=== PATIENT | male | born 1955 | race Caucasian/White ===

== ENCOUNTER → 2019-07-12 09:08 | Outpatient (CLI) | payer OTHER, SELFPAY ==
[2019-07-12 09:39] LABS: Add Manual Diff / Slide Review NO; Basophils Absolute Auto 0 /uL (0-100); Basophils Percent Auto 0.6 % (0-2); Eosinophils Absolute Auto 100 /uL (0-450); Eosinophils Percent Auto 3.3 % (2-4); Hematocrit 46.4 % (41-53); Hemoglobin 15.8 g/dL (13.5-17.5); Lymphocytes Absolute Auto 1300 /uL (1100-4500); Lymphocytes Percent Auto 30.4 % (25-40); Mean Corpuscular HGB Conc 34.1 % (30-36); Mean Corpuscular Hemoglobin 30.1 PG (26-34); Mean Corpuscular Volume 88.2 fL (80-100); Monocytes Absolute Auto 400 /uL (0-900); Monocytes Percent Auto 8.3 % (3-14); Neutrophils Absolute Auto 2400 /uL (1500-7000); Neutrophils Percent Auto 57.4 % (50-75); Platelet Count 110 X10^3/uL (150-400); Red Blood Cell Count 5.26 X10^6/uL (4.5-5.9); Red Cell Distribution Width 14.1 % (11.6-14.8); White Blood Cell Count 4.3 X10^3/uL (4.5-11.0)
[2019-07-12 09:43] LABS: Hemoglobin A1C% w Est Avg Glu 5.6 % (4.0-6.0)
[2019-07-12 10:35] LABS: Alanine Aminotransferase 25 IU/L (<50); Albumin Globulin Ratio 1.7 (1.0-2.8); Alkaline Phosphatase 61 U/L (38-126); Aspartate Aminotransferase 31 IU/L (17-59); BUN Creatinine Ratio 18.5 (6-22); Bilirubin Total 2.2 mg/dL (0.2-1.3); Blood Urea Nitrogen 24 mg/dL (9-20); Carbon Dioxide 27 mmol/L (22-32); Chloride 102 mmol/L (98-107); Estimated Glomerular Filt Rate 56.1 mL/min (>60); Glucose 104 mg/dL (80-110); HEMOLYSIS < 15 (0-50); Potassium 4.3 mmol/L (3.4-5.1); Sodium 141 mmol/L (137-145)
[2019-07-12 11:05] LABS: Thyroid Stimulating Hormone 5.86 uIU/mL (0.47-4.68)
[2019-07-12 11:06] LABS: Prostate Specific Antigen Scrn 0.969 ng/mL (0.1-4.0)
== END ==
PROVIDERS: PCP Family Medicine; Referring Provider Family Medicine; Visit Provider Family Medicine
DX: R10.11 Right upper quadrant pain (principal); Z12.5 Encounter for screening for malignant neoplasm of prostate
CPT/HCPCS: 36415; 80053; 83036; 84443; 85025; G0103

== ENCOUNTER → 2019-07-20 09:49 | Outpatient (CLI) | payer OTHER, SELFPAY ==
[2019-07-20 11:54] LABS: Free T4, Direct Thyroxine 0.94 ng/dL (0.78-2.19)
[2019-07-20 12:08] LABS: Thyroid Stimulating Hormone 4.14 uIU/mL (0.47-4.68)
== END ==
PROVIDERS: PCP Family Medicine; Referring Provider Family Medicine; Visit Provider Family Medicine
DX: E03.9 Hypothyroidism, unspecified (principal)
CPT/HCPCS: 36415; 84439; 84443

== ENCOUNTER → 2019-10-13 10:44 | Outpatient (CLI) | payer OTHER, SELFPAY ==
[2019-10-13 13:05] LABS: TSH w/ Reflex to FT4 2.16 uIU/mL (0.47-4.68)
== END ==
PROVIDERS: PCP Family Medicine; Referring Provider Family Medicine; Visit Provider Family Medicine
DX: E03.9 Hypothyroidism, unspecified (principal)
CPT/HCPCS: 36415; 84443

== ENCOUNTER → 2020-03-26 07:41 | Outpatient (CLI) | payer OTHER, SELFPAY ==
--- NOTE | 2020-03-26 | DI.MRI.S_ITS ---
PROCEDURE: MR BRAIN (IAC) WWO CON INDICATIONS: Tinnitus, right ear TECHNIQUE: Noncontrast sagittal T1 spin echo, axial FLAIR, axial gradient echo, axial diffusion and ADC through the brain. Axial thin-slice 3D CISS, coronal TruFISP, axial T1 spin echo with fat saturation through the internal auditory canals. After the administration of contrast, thin slice axial and coronal T1 spin echo with fat saturation through the internal auditory canals, and axial T1 spin echo with fat saturation through the brain. COMPARISON: None. FINDINGS: Image quality: Excellent. Cerebellopontine angles: No cerebellopontine angle masses. The inner ear structures appear normally formed. No suspicious enhancement in the internal auditory canal or along the courses of the 7th and 8th cranial nerves. No sarina vascular loops are seen into the internal auditory canals. CSF spaces: Ventricles are normal in size and shape. No extra-axial fluid collections. Basal cisterns are patent. Brain: No intracranial bleeds or mass effects. Lee-white matter interface is intact. No abnormal intracranial enhancement. Diffusion weighted images demonstrate no acute ischemic insults. Brainstem appears normal. Normal intravascular flow voids are present. Skull and face: Calvarial marrow signal is normal. Orbits appear normal. Sinuses: There is a mucous retention cyst seen within the right maxillary sinus. Sinuses and mastoids are otherwise relatively clear. IMPRESSION: No significant abnormality is seen. Specifically, no masses or abnormal enhancement are seen within the cerebellopontine angle cisterns or within the internal auditory canals. No abnormal vascular loops are seen involving either internal auditory canal. Dictated by: Cristóbal Greenwood M.D. on 03/26/2020 at 9:08 Approved by: Cristóbal Greenwood M.D. on 03/26/2020 at 9:09
== END ==
PROVIDERS: PCP Family Medicine; Referring Provider Otolaryngology; Visit Provider Otolaryngology
DX: H93.11 Tinnitus, right ear (principal)
CPT/HCPCS: 70553

== ENCOUNTER → 2020-08-23 10:36 | Outpatient (CLI) | payer OTHER, SELFPAY ==
[2020-08-23] MEDS: COVID-19 VACC #1, MRNA(MOD) 100 MCG/0.5 ML VIAL IM (10:39)
== END ==
PROVIDERS: PCP Family Medicine; Visit Provider Internal Medicine
DX: Z23 Encounter for immunization (principal)
CPT/HCPCS: 0011A; 91301

== ENCOUNTER → 2020-09-07 07:52 | Outpatient (CLI) | payer OTHER, SELFPAY ==
[2020-09-07 08:33] LABS: Basophils Absolute Auto 0 /uL (0-100); Basophils Percent Auto 1.2 % (0-2); Eosinophils Absolute Auto 300 /uL (0-450); Eosinophils Percent Auto 6.7 % (2-4); Hematocrit 43.4 % (41-53); Hemoglobin 14.6 g/dL (13.5-17.5); Lymphocytes Absolute Auto 1400 /uL (1100-4500); Lymphocytes Percent Auto 36.3 % (25-40); Mean Corpuscular HGB Conc 33.5 % (30-36); Mean Corpuscular Hemoglobin 29.5 PG (26-34); Mean Corpuscular Volume 87.9 fL (80-100); Monocytes Absolute Auto 400 /uL (0-900); Monocytes Percent Auto 11.7 % (3-14); Neutrophils Absolute Auto 1700 /uL (1500-7000); Neutrophils Percent Auto 44.1 % (50-75); Platelet Count 102 X10^3/uL (150-400); Red Blood Cell Count 4.94 X10^6/uL (4.5-5.9); Red Cell Distribution Width 13.4 % (11.6-14.8); White Blood Cell Count 3.8 X10^3/uL (4.5-11.0)
[2020-09-07 08:35] LABS: Add Manual Diff / Slide Review SLIDE REVIEW
[2020-09-07 09:37] LABS: RBC Morphology Normal Morphology
[2020-09-07 09:39] LABS: Platelet Estimate Decreased on smear
[2020-09-07 09:49] LABS: Alanine Aminotransferase 29 IU/L (<50); Albumin 4.4 g/dL (3.5-5.0); Albumin Globulin Ratio 1.6 (1.0-2.8); Alkaline Phosphatase 62 U/L (38-126); Aspartate Aminotransferase 37 IU/L (17-59); BUN Creatinine Ratio 14.8 (6-22); Bilirubin Total 1.1 mg/dL (0.2-1.3); Blood Urea Nitrogen 18 mg/dL (9-20); Calcium 9.6 mg/dL (8.4-10.2); Carbon Dioxide 29 mmol/L (22-32); Chloride 104 mmol/L (98-107); Cholesterol 194 mg/dL (140-199); Estimated Glomerular Filt Rate > 60.0 mL/min (>60); Globulin 2.8 g/dL (1.7-4.1); Glucose 107 mg/dL (80-110); HDL Cholesterol 49 mg/dL (40-60); HEMOLYSIS < 15 (0-50); LDL Cholesterol Calculated 120 mg/dL (<100); Potassium 4.2 mmol/L (3.4-5.1); Sodium 139 mmol/L (137-145); Total Protein 7.2 g/dL (6.3-8.2); Triglycerides 125 mg/dL (35-150)
[2020-09-07 10:18] LABS: Prostate Specific Antigen Scrn 0.777 ng/mL (0.1-4.0)
[2020-09-07 10:22] LABS: TSH w/ Reflex to FT4 4.08 uIU/mL (0.47-4.68)
== END ==
PROVIDERS: PCP Family Medicine; Referring Provider Family Medicine; Visit Provider Family Medicine
DX: D69.6 Thrombocytopenia, unspecified (principal); E03.9 Hypothyroidism, unspecified; N28.9 Disorder of kidney and ureter, unspecified; Z13.220 Encounter for screening for lipoid disorders; Z12.5 Encounter for screening for malignant neoplasm of prostate
CPT/HCPCS: 36415; 80053; 80061; 84443; 85025; G0103

== ENCOUNTER → 2020-09-20 10:15 | Outpatient (CLI) | payer OTHER, SELFPAY ==
[2020-09-20] MEDS: COVID-19 VACC #2, MRNA(MOD) 100 MCG/0.5 ML VIAL IM (10:20)
== END ==
PROVIDERS: PCP Family Medicine; Visit Provider Internal Medicine
DX: Z23 Encounter for immunization (principal)
CPT/HCPCS: 0012A; 91301

== ENCOUNTER → 2021-11-22 07:04 | Outpatient (CLI) | payer OTHER, SELFPAY ==
[2021-11-22 08:03] LABS: Basophils Absolute Auto 0 /uL (0-100); Basophils Percent Auto 0.6 % (0-2); Eosinophils Absolute Auto 200 /uL (0-450); Eosinophils Percent Auto 5.9 % (2-4); Hematocrit 43.7 % (41-53); Hemoglobin 14.6 g/dL (13.5-17.5); Lymphocytes Absolute Auto 1300 /uL (1100-4500); Lymphocytes Percent Auto 33.5 % (25-40); Mean Corpuscular HGB Conc 33.5 % (30-36); Mean Corpuscular Hemoglobin 29.4 PG (26-34); Mean Corpuscular Volume 87.9 fL (80-100); Monocytes Absolute Auto 500 /uL (0-900); Monocytes Percent Auto 11.9 % (3-14); Neutrophils Absolute Auto 1900 /uL (1500-7000); Neutrophils Percent Auto 48.1 % (50-75); Platelet Count 103 X10^3/uL (150-400); Red Blood Cell Count 4.97 X10^6/uL (4.5-5.9); Red Cell Distribution Width 13.5 % (11.6-14.8)
[2021-11-22 08:06] LABS: Alanine Aminotransferase 35 IU/L (<50); Albumin 4.6 g/dL (3.5-5.0); Albumin Globulin Ratio 1.6 (1.0-2.8); Alkaline Phosphatase 57 U/L (38-126); Aspartate Aminotransferase 38 IU/L (17-59); BUN Creatinine Ratio 14.3 (6-22); Bilirubin Total 1.7 mg/dL (0.2-1.3); Blood Urea Nitrogen 18 mg/dL (9-20); Calcium 9.1 mg/dL (8.4-10.2); Carbon Dioxide 28 mmol/L (22-32); Chloride 105 mmol/L (98-107); Cholesterol 200 mg/dL (140-199); Estimated Glomerular Filt Rate > 60 mL/min (>60); Globulin 2.8 g/dL (1.7-4.1); Glucose 102 mg/dL (80-110); HDL Cholesterol 49 mg/dL (40-60); HEMOLYSIS < 15 (0-50); LDL Cholesterol Calculated 127 mg/dL (<100); Potassium 4.5 mmol/L (3.4-5.1); Sodium 140 mmol/L (137-145); Total Protein 7.4 g/dL (6.3-8.2); Triglycerides 122 mg/dL (35-150)
[2021-11-22 08:08] LABS: Add Manual Diff / Slide Review SLIDE REVIEW
[2021-11-22 08:33] LABS: Prostate Specific Antigen Scrn 0.759 ng/mL (0.1-4.0)
[2021-11-22 08:34] LABS: TSH w/ Reflex to FT4 2.45 uIU/mL (0.47-4.68)
[2021-11-22 09:06] LABS: RBC Morphology Normal Morphology
== END ==
PROVIDERS: PCP Family Medicine; Referring Provider Family Medicine; Visit Provider Family Medicine
DX: Z00.00 Encounter for general adult medical examination without abnormal findings (principal); K63.5 Polyp of colon; N28.9 Disorder of kidney and ureter, unspecified; E03.9 Hypothyroidism, unspecified; Z12.5 Encounter for screening for malignant neoplasm of prostate
CPT/HCPCS: 36415; 80053; 80061; 84443; 85025; G0103

== ENCOUNTER → 2022-04-24 14:13 | Outpatient (CLI) | payer OTHER, SELFPAY ==
--- NOTE | 2022-04-24 14:15 | DI.RAD.S_ITS ---
PROCEDURE: XR RIBS RT MIN 3V W CXR 1V INDICATIONS: right posterior rib pain TECHNIQUE: 4 views of the right ribs were acquired, along with a single view chest. COMPARISON: None. FINDINGS: Surgical changes and devices: None. Bones and chest wall: No fractures or dislocations. No suspicious bony lesions. Overlying soft tissues appear unremarkable. Lungs and pleura: No pleural effusions or pneumothorax. Lungs appear clear. Mediastinum: Mediastinal contours appear normal. Heart size is normal. IMPRESSION: 1. Normal PA chest. 2. No rib fracture identified. Dictated by: Ede Delarosa M.D. on 04/24/2022 at 15:18 Approved by: Ede Delarosa M.D. on 04/24/2022 at 15:19
== END ==
PROVIDERS: PCP Family Medicine; Referring Provider Registered Nurse; Visit Provider Registered Nurse
DX: R07.81 Pleurodynia (principal)
CPT/HCPCS: 71101

== ENCOUNTER → 2022-06-03 07:31 | Outpatient (CLI) | payer OTHER, SELFPAY ==
[2022-06-03 08:39] LABS: Alanine Aminotransferase 29 IU/L (<50); Albumin 4.8 g/dL (3.5-5.0); Albumin Globulin Ratio 1.5 (1.0-2.8); Alkaline Phosphatase 63 U/L (38-126); Aspartate Aminotransferase 28 IU/L (17-59); BUN Creatinine Ratio 11.3 (6-22); Bilirubin Total 1.9 mg/dL (0.2-1.3); Blood Urea Nitrogen 16 mg/dL (9-20); Calcium 9.4 mg/dL (8.4-10.2); Carbon Dioxide 28 mmol/L (22-32); Chloride 101 mmol/L (98-107); Estimated Glomerular Filt Rate 56 mL/min (>60); Globulin 3.2 g/dL (1.7-4.1); Glucose 99 mg/dL (80-110); HEMOLYSIS < 15 (0-50); Potassium 4.3 mmol/L (3.4-5.1); Sodium 141 mmol/L (137-145)
[2022-06-03 08:50] LABS: Free T4, Direct Thyroxine 1.23 ng/dL (0.78-2.19)
[2022-06-03 09:04] LABS: Thyroid Stimulating Hormone 2.64 uIU/mL (0.47-4.68)
== END ==
PROVIDERS: Family Provider Family Medicine; PCP Family Medicine; Referring Provider Family Medicine; Visit Provider Family Medicine
DX: E03.9 Hypothyroidism, unspecified (principal)
CPT/HCPCS: 36415; 80053; 84439; 84443

== ENCOUNTER 2022-07-02 16:45 | Outpatient (RCR) | payer OTHER, SELFPAY ==
--- NOTE | 2022-05-29 10:30 | PT.OPPOC ---
Physical, Occupational & Speech Therapy At [facility] Current Diagnoses Strain of unspecified muscle, fascia and tendon at shoulder and upper arm level, right arm, initial encounter (05/29/22) Strain of unspecified muscle, fascia and tendon at shoulder and upper arm level, right arm, subsequent encounter (05/29/22) Visit Care Team Role Provider Type Sukumar Finn DO Family Provider Physician Primary Care Provider Specialty: [facility] Practice Address: [address] [place] [address], [id number] Email: [email or web address] Danielle Perez DO Attending Provider Physician Referring Provider Specialty: [facility] Address: [address] [place] [address], [address], [place], [address] Phone: Fax: Email: [email or web address] Plan Of Care PT-OP-T Assessment and Plan Start: 05/29/22 15:37 Freq: Status: Active Protocol: Document 05/29/22 09:45 DCW (Rec: 05/30/22 08:51 DCW [id number]) Physical Therapy Assessment Rehab Potential Rehabilitation Potential Good Evaluation Complexity Number of Personal Factors/Comorbidities 3 or More Number of Body Systems Impaired 3 Clinical Presentation at Evaluation Unstable Impairments Impairments Pain,ROM,Soft Tissue Mobility, Strength,Tone Goals Three Impairment Pt shows significant decrease in right feltmaker strength (75 lbs vs 120 lbs L) Body Component Engineer Goal (LTG) Pt to increase right feltmaker strength to at lease 100 lbs of force using a dynamometer LTG Duration 07/27/22 Two Impairment Pt displays significantly limited cervical ROM Body Component Engineer Goal (LTG) Pt to increased cervical lateral flexion bilaterally to at least 30?, and right rotation to at least 60?, in order to improve ability when turning his head to check for traffic LTG Duration 07/27/22 One Impairment Pt does not have an appropriate home exercise program Short Term Goal (STG) Pt to be independent and compliant with an appropriate HEP STG Duration 06/29/22 Assessment Summary Assessment Pt presents with signs and symptoms consistent with potential nerve impingement. Pt reports numbness and tingling along right posterior upper arm and his entire forearm, as well as demonstrates significant decrease in right feltmaker strength when compared to left . Likely C8 nerve root impingement vs cubital tunnel syndrome due to sensory changes in upper and forearm. Complaints of pain along rhomboid may be due to compensatory strategies secondary to nerve impingement . Pt should benefit from skilled therapy focusing on decreasing tone, manual traction, nerve glides, shoulder and feltmaker strengthening, and pain- control modalities. Physical Therapy Plan Frequency and Duration Frequency of Treatment 2x/Week Plan of Care Start Date 05/29/22 Plan of Care End Date 07/27/22 Therapeutic Interventions Therapeutic Interventions Home Exercise Program,Joint Mobilizations,Manual Therapy, Neuromuscular Re-education, Patient/Caregiver Education, Self-Care/Home Management,Soft Tissue Mobilization, Therapeutic Activities, Therapeutic Exercises Modalities Cold Pack/Ice Massage,Electric Stimulation,Hot Packs, Ultrasound Next Visit Focus/Plan Next Note Type Treatment Note Next Visit Plan Cervical traction, stretching, strengthening, neural glides Plan of Care Dates Plan of Care Start Date 05/29/22 Plan of Care End Date 07/27/22 Electronically Signed by: Narendra Isaacs, PT 05/30/22 0852 If you are in agreement with this Plan of Care, please return a signed and dated copy. I have reviewed this Plan of Care and certify that the skilled therapy services above are required to meet the patient?s needs. Physician Signature Date Printed Name and Credentials Clinical Instructor Signature Printed Name and Credentials
--- NOTE | 2022-05-29 10:30 | PT.OIE ---
Current Diagnoses Strain of unspecified muscle, fascia and tendon at shoulder and upper arm level, right arm, initial encounter (05/29/22) Strain of unspecified muscle, fascia and tendon at shoulder and upper arm level, right arm, subsequent encounter (05/29/22) Past Medical History (Last Reviewed 04/24/22 @ 14:14 by NIMISHA Chisholm) Acute hearing loss of right ear Chicken pox Decreased platelet count (~1993) Hypothyroidism Kidney stones (~2018) Measles Mumps Positive TB test Renal insufficiency Skin cancer Wears glasses Well adult exam Past Surgical History (Last Reviewed 04/24/22 @ 14:14 by NIMISHA Chisholm) Anesthesia Hx of appendectomy Visit Care Team Role Provider Type Sukumar Finn DO Family Provider Physician Primary Care Provider Specialty: [facility] Address: [address] [place] [address], [address] Email: [email or web address] Danielle Perez DO Attending Provider Physician Referring Provider Specialty: [facility] Address: [address] [place] [address], [address], [place], [address] Phone: Fax: Email: [email or web address] Physical Therapy Initial Evaluation PT-OP-A Visit Information Start: 05/29/22 15:37 Freq: Status: Active Protocol: Document 05/29/22 09:45 DCW (Rec: 05/29/22 15:59 DCW [id number]) Out-Patient Physical Therapy Visit Information Visit Information Visit Type Initial Evaluation Visit Start Time 09:45 Visit Stop Time 10:30 Total Visit Minutes 45 Visit Number 1 Number of ECOSYSTEM ECOLOGY PROFESSOR Visits 0 Evaluation Information Evaluation Date 05/29/22 PT-OP-B Current Condition Start: 05/29/22 15:37 Freq: Status: Active Protocol: Document 05/29/22 09:45 DCW (Rec: 05/29/22 15:59 DCW [id number]) Current Condition History of Current Condition Onset Date 1.5 month history Current Complaints Tightness/pain along medial R scapula, occasional tingling R triceps History of Current Condition Pt is a 66 year old male presenting with a 1.5 month history of tightness and pain along what he describes as his rhomboids on his right side, which began around Thanksgiving 1.5 months ago. No noted initial injury, appears to be idiopathic. Spoke with a friend who happens to be a retired physical therapist, who thought he may have some displaced ribs, recommended x- rays. X-rays did not appear to show anything in particular, pt has seen a chiro a few times, who worked on his neck and back some, which helped for a short time, but pain always returned. Pt also complains of occasional numbness down his right arm, mainly in his triceps, but occasionally into his forearm, and admits he self-diagnosed himself with ulnar nerve entrapment after googling his symptoms. Pt typically spends a lot of time lifting weights, and hasn't been able to for the past seven months, and he is anxious to get back to it. Treatment Goals Patient/Caregiver Goals Return to weight lifting, eliminate scapular/rhomboid pain, eliminate right arm numbness PT-OP-C Subjective Start: 05/29/22 15:37 Freq: Status: Active Protocol: Document 05/29/22 09:45 DCW (Rec: 05/29/22 15:59 DCW [id number]) OP-PT Subjective Patient Comments Patient Comments After seeing the chiropractor , I was actually able to turn my head far enough to look for oncoming traffic, which is nice. Patient Questionnaires Neck Disability Index NDI Score = 26.67% Quick Dash- Upper Extremity Quick Dash UE Score 40.91% OP-PT Pain Assessment Pain Assessment Grid Paper Pain Assessment Grid Completed Yes: See chart PT-OP-E Functional Tests Start: 05/29/22 15:37 Freq: Status: Active Protocol: Document 05/29/22 09:45 DCW (Rec: 05/29/22 15:59 DCW [id number]) Functional Tests Apley's Scratch Test Action 2- Left T4 Action 2- Right C4 Action 3- Left T9 Action 3- Right T11 PT-OP-F Manual Assessment Start: 05/29/22 15:37 Freq: Status: Active Protocol: Document 05/29/22 09:45 DCW (Rec: 05/29/22 17:45 DCW [id number]) Manual Assessments Soft Tissue Assessment Soft Tissue Mobility Assessment Mild-moderate tone right parascapular musculature: rhomboids subscap, infraspinatus Moderate tone right upper trap , scalenes, levator scap PT-OP-K Range of Motion Start: 05/29/22 15:37 Freq: Status: Active Protocol: Document 05/29/22 09:45 DCW (Rec: 05/29/22 17:45 DCW [id number]) Cervical Spine Range of Motion Cervical Spine Active Degrees Testing Position Sitting Flexion 50 Extension 25 Rotation Left 60 Rotation Right 48 Lateral Flexion Left 19 Lateral Flexion Right 8 ROM Limitations Soft Tissue Tightness,Bony Restriction,Muscle Tone,Pain PT-OP-L Special Tests Start: 05/29/22 15:37 Freq: Status: Active Protocol: Document 05/29/22 09:45 DCW (Rec: 05/29/22 17:45 DCW [id number]) Special Tests Cervical Spine Special Tests Spurling's Test Test Results Positive R Foraminal Compression Test Results Positive R Neural Special Tests- Upper Body Ulnar Nerve Tension Test Results Positive R PT-OP-M Strength Start: 05/29/22 15:37 Freq: Status: Active Protocol: Document 05/29/22 09:45 DCW (Rec: 05/29/22 17:45 DCW [id number]) Hand Job Placement Officer/Pinch Strength Hand Dominance Hand Dominance Right Hand Strength Right Job Placement Officer (lbs) 75 Left Job Placement Officer (lbs) 120 PT-OP-Q Treatments Start: 05/29/22 15:37 Freq: Status: Active Protocol: Document 05/29/22 09:45 DCW (Rec: 05/29/22 16:00 DCW [id number]) Therapeutic Exercises Sitting Exercises Upper Trap Sitting Exercise Name Upper Trap stretch Side right PT-OP-T Assessment and Plan Start: 05/29/22 15:37 Freq: Status: Active Protocol: Document 05/29/22 09:45 DCW (Rec: 05/30/22 08:51 DCW [id number]) Physical Therapy Assessment Rehab Potential Rehabilitation Potential Good Evaluation Complexity Number of Personal Factors/Comorbidities 3 or More Number of Body Systems Impaired 3 Clinical Presentation at Evaluation Unstable Impairments Impairments Pain,ROM,Soft Tissue Mobility, Strength,Tone Goals Three Impairment Pt shows significant decrease in right management specialist strength (75 lbs vs 120 lbs L) Ornamental Ironworker Goal (LTG) Pt to increase right management specialist strength to at lease 100 lbs of force using a dynamometer LTG Duration 07/27/22 Two Impairment Pt displays significantly limited cervical ROM Prison Goal (LTG) Pt to increased cervical lateral flexion bilaterally to at least 30?, and right rotation to at least 60?, in order to improve ability when turning his head to check for traffic LTG Duration 07/27/22 One Impairment Pt does not have an appropriate home exercise program Short Term Goal (STG) Pt to be independent and compliant with an appropriate HEP STG Duration 06/29/22 Assessment Summary Assessment Pt presents with signs and symptoms consistent with potential nerve impingement. Pt reports numbness and tingling along right posterior upper arm and his entire forearm, as well as demonstrates significant decrease in right management specialist strength when compared to left . Likely C8 nerve root impingement vs cubital tunnel syndrome due to sensory changes in upper and forearm. Complaints of pain along rhomboid may be due to compensatory strategies secondary to nerve impingement . Pt should benefit from skilled therapy focusing on decreasing tone, manual traction, nerve glides, shoulder and management specialist strengthening, and pain- control modalities. Physical Therapy Plan Frequency and Duration Frequency of Treatment 2x/Week Plan of Care Start Date 05/29/22 Plan of Care End Date 07/27/22 Therapeutic Interventions Therapeutic Interventions Home Exercise Program,Joint Mobilizations,Manual Therapy, Neuromuscular Re-education, Patient/Caregiver Education, Self-Care/Home Management,Soft Tissue Mobilization, Therapeutic Activities, Therapeutic Exercises Modalities Cold Pack/Ice Massage,Electric Stimulation,Hot Packs, Ultrasound Next Visit Focus/Plan Next Note Type Treatment Note Next Visit Plan Cervical traction, stretching, strengthening, neural glides
--- NOTE | 2022-06-05 11:18 | PT.OTN ---
Current Diagnoses Strain of unspecified muscle, fascia and tendon at shoulder and upper arm level, right arm, initial encounter (06/05/22) Strain of unspecified muscle, fascia and tendon at shoulder and upper arm level, right arm, subsequent encounter (06/05/22) Physical Therapy Treatment Note PT-OP-A Visit Information Start: 05/29/22 15:37 Freq: Status: Active Protocol: Document 06/05/22 09:50 DCW (Rec: 06/05/22 11:18 DCW [id number]) Out-Patient Physical Therapy Visit Information Visit Information Visit Type Treatment Note Visit Start Time 09:50 Visit Stop Time 10:30 Total Visit Minutes 40 Visit Number 2 Number of MERCHANDISE FLOW MANAGER Visits 0 Evaluation Information Evaluation Date 05/29/22 PT-OP-B Current Condition Start: 05/29/22 15:37 Freq: Status: Active Protocol: Document 05/29/22 09:45 DCW (Rec: 05/29/22 15:59 DCW [id number]) Current Condition History of Current Condition Onset Date 1.5 month history Current Complaints Tightness/pain along medial R scapula, occasional tingling R triceps History of Current Condition Pt is a 66 year old male presenting with a 1.5 month history of tightness and pain along what he describes as his rhomboids on his right side, which began around giving 1.5 months ago. No noted initial injury, appears to be idiopathic. Spoke with a friend who happens to be a retired physical therapist, who thought he may have some displaced ribs, recommended x- rays. X-rays did not appear to show anything in particular, pt has seen a chiro a few times, who worked on his neck and back some, which helped for a short time, but pain always returned. Pt also complains of occasional numbness down his right arm, mainly in his triceps, but occasionally into his forearm, and admits he self-diagnosed himself with ulnar nerve entrapment after googling his symptoms. Pt typically spends a lot of time lifting weights, and hasn't been able to for the past seven months, and he is anxious to get back to it. Treatment Goals Patient/Caregiver Goals Return to weight lifting, eliminate scapular/rhomboid pain, eliminate right arm numbness PT-OP-C Subjective Start: 05/29/22 15:37 Freq: Status: Active Protocol: Document 06/05/22 09:50 DCW (Rec: 06/05/22 11:18 DCW [id number]) OP-PT Subjective Patient Comments Patient Comments The only thing that seems to help right now is heat. PT-OP-E Functional Tests Start: 05/29/22 15:37 Freq: Status: Active Protocol: Document 05/29/22 09:45 DCW (Rec: 05/29/22 15:59 DCW [id number]) Functional Tests Apley's Scratch Test Action 2- Left T4 Action 2- Right C4 Action 3- Left T9 Action 3- Right T11 PT-OP-F Manual Assessment Start: 05/29/22 15:37 Freq: Status: Active Protocol: Document 05/29/22 09:45 DCW (Rec: 05/29/22 17:45 DCW [id number]) Manual Assessments Soft Tissue Assessment Soft Tissue Mobility Assessment Mild-moderate tone right parascapular musculature: rhomboids subscap, infraspinatus Moderate tone right upper trap , scalenes, levator scap PT-OP-K Range of Motion Start: 05/29/22 15:37 Freq: Status: Active Protocol: Document 05/29/22 09:45 DCW (Rec: 05/29/22 17:45 DCW [id number]) Cervical Spine Range of Motion Cervical Spine Active Degrees Testing Position Sitting Flexion 50 Extension 25 Rotation Left 60 Rotation Right 48 Lateral Flexion Left 19 Lateral Flexion Right 8 ROM Limitations Soft Tissue Tightness,Bony Restriction,Muscle Tone,Pain PT-OP-L Special Tests Start: 05/29/22 15:37 Freq: Status: Active Protocol: Document 05/29/22 09:45 DCW (Rec: 05/29/22 17:45 DCW [id number]) Special Tests Cervical Spine Special Tests Spurling's Test Test Results Positive R Foraminal Compression Test Results Positive R Neural Special Tests- Upper Body Ulnar Nerve Tension Test Results Positive R PT-OP-M Strength Start: 05/29/22 15:37 Freq: Status: Active Protocol: Document 05/29/22 09:45 DCW (Rec: 05/29/22 17:45 DCW [id number]) Hand Stuntman/Pinch Strength Hand Dominance Hand Dominance Right Hand Strength Right Stuntman (lbs) 75 Left Stuntman (lbs) 120 PT-OP-Q Treatments Start: 05/29/22 15:37 Freq: Status: Active Protocol: Document 06/05/22 09:50 DCW (Rec: 06/05/22 11:18 DCW [id number]) Therapeutic Exercises Sitting Exercises Upper Trap Sitting Exercise Name Upper Trap stretch Side right Manual Therapy Treatment Soft Tissue Mobilization Cervical paraspinals Body Location Upper trap, scalenes, levator, SCM Mobilization Type Sustained Pressure,Trigger Point Release Intensity/Depth Moderate Manual Traction Cervical Details Cervical traction Body Position Supine Nerve Glides Ulnar Nerve Ulnar nerve glide/floss Comments /c and /s lateral head tilt PT-OP-T Assessment and Plan Start: 05/29/22 15:37 Freq: Status: Active Protocol: Document 06/05/22 09:50 DCW (Rec: 06/05/22 11:18 DCW [id number]) Physical Therapy Assessment Impairments Impairments Pain,ROM,Soft Tissue Mobility, Strength,Tone Goals Three Impairment Pt shows significant decrease in right tank car mechanic strength (75 lbs vs 120 lbs L) Vascular Ultrasound Technician Goal (LTG) Pt to increase right tank car mechanic strength to at lease 100 lbs of force using a dynamometer LTG Duration 07/27/22 Two Impairment Pt displays significantly limited cervical ROM Senior Living Goal (LTG) Pt to increased cervical lateral flexion bilaterally to at least 30?, and right rotation to at least 60?, in order to improve ability when turning his head to check for traffic LTG Duration 07/27/22 One Impairment Pt does not have an appropriate home exercise program Short Term Goal (STG) Pt to be independent and compliant with an appropriate HEP STG Duration 06/29/22 Assessment Summary Assessment Pt tolerated treatment very well, noted improvement in symptoms with cervical traction and ulnar flossing. Will continue with HEP, hopeful to get inprior to next if there is an opening in the schedule. Physical Therapy Plan Frequency and Duration Frequency of Treatment 2x/Week Plan of Care Start Date 05/29/22 Plan of Care End Date 07/27/22 Therapeutic Interventions Therapeutic Interventions Home Exercise Program,Joint Mobilizations,Manual Therapy, Neuromuscular Re-education, Patient/Caregiver Education, Self-Care/Home Management,Soft Tissue Mobilization, Therapeutic Activities, Therapeutic Exercises Modalities Cold Pack/Ice Massage,Electric Stimulation,Hot Packs, Ultrasound Next Visit Focus/Plan Next Note Type Treatment Note Next Visit Plan Cervical traction, stretching, strengthening, neural glides
--- NOTE | 2022-06-12 10:33 | PT.OTN ---
Current Diagnoses Strain of unspecified muscle, fascia and tendon at shoulder and upper arm level, right arm, initial encounter (06/12/22) Strain of unspecified muscle, fascia and tendon at shoulder and upper arm level, right arm, subsequent encounter (06/12/22) Physical Therapy Treatment Note PT-OP-A Visit Information Start: 05/29/22 15:37 Freq: Status: Active Protocol: Document 06/12/22 09:45 DCW (Rec: 06/12/22 10:23 DCW [id number]) Out-Patient Physical Therapy Visit Information Visit Information Visit Type Treatment Note Visit Start Time 09:45 Visit Stop Time 10:30 Total Visit Minutes 45 Visit Number 3 Number of RUBBER PRINTING MACHINE OPERATOR Visits 0 Evaluation Information Evaluation Date 05/29/22 PT-OP-B Current Condition Start: 05/29/22 15:37 Freq: Status: Active Protocol: Document 05/29/22 09:45 DCW (Rec: 05/29/22 15:59 DCW [id number]) Current Condition History of Current Condition Onset Date 1.5 month history Current Complaints Tightness/pain along medial R scapula, occasional tingling R triceps History of Current Condition Pt is a 66 year old male presenting with a 1.5 month history of tightness and pain along what he describes as his rhomboids on his right side, which began around giving 1.5 months ago. No noted initial injury, appears to be idiopathic. Spoke with a friend who happens to be a retired physical therapist, who thought he may have some displaced ribs, recommended x- rays. X-rays did not appear to show anything in particular, pt has seen a chiro a few times, who worked on his neck and back some, which helped for a short time, but pain always returned. Pt also complains of occasional numbness down his right arm, mainly in his triceps, but occasionally into his forearm, and admits he self-diagnosed himself with ulnar nerve entrapment after googling his symptoms. Pt typically spends a lot of time lifting weights, and hasn't been able to for the past seven months, and he is anxious to get back to it. Treatment Goals Patient/Caregiver Goals Return to weight lifting, eliminate scapular/rhomboid pain, eliminate right arm numbness PT-OP-C Subjective Start: 05/29/22 15:37 Freq: Status: Active Protocol: Document 06/12/22 09:45 DCW (Rec: 06/12/22 10:23 DCW [id number]) OP-PT Subjective Patient Comments Patient Comments Pt feeling great, has been compliant with his HEP, has been pain-free about 95% of the time, still comes back with extended sitting, more like driving. PT-OP-E Functional Tests Start: 05/29/22 15:37 Freq: Status: Active Protocol: Document 05/29/22 09:45 DCW (Rec: 05/29/22 15:59 DCW [id number]) Functional Tests Apley's Scratch Test Action 2- Left T4 Action 2- Right C4 Action 3- Left T9 Action 3- Right T11 PT-OP-F Manual Assessment Start: 05/29/22 15:37 Freq: Status: Active Protocol: Document 05/29/22 09:45 DCW (Rec: 05/29/22 17:45 DCW [id number]) Manual Assessments Soft Tissue Assessment Soft Tissue Mobility Assessment Mild-moderate tone right parascapular musculature: rhomboids subscap, infraspinatus Moderate tone right upper trap , scalenes, levator scap PT-OP-K Range of Motion Start: 05/29/22 15:37 Freq: Status: Active Protocol: Document 05/29/22 09:45 DCW (Rec: 05/29/22 17:45 DCW [id number]) Cervical Spine Range of Motion Cervical Spine Active Degrees Testing Position Sitting Flexion 50 Extension 25 Rotation Left 60 Rotation Right 48 Lateral Flexion Left 19 Lateral Flexion Right 8 ROM Limitations Soft Tissue Tightness,Bony Restriction,Muscle Tone,Pain PT-OP-L Special Tests Start: 05/29/22 15:37 Freq: Status: Active Protocol: Document 05/29/22 09:45 DCW (Rec: 05/29/22 17:45 DCW [id number]) Special Tests Cervical Spine Special Tests Spurling's Test Test Results Positive R Foraminal Compression Test Results Positive R Neural Special Tests- Upper Body Ulnar Nerve Tension Test Results Positive R PT-OP-M Strength Start: 05/29/22 15:37 Freq: Status: Active Protocol: Document 05/29/22 09:45 DCW (Rec: 05/29/22 17:45 DCW [id number]) Hand Motor Grader Operator/Pinch Strength Hand Dominance Hand Dominance Right Hand Strength Right Motor Grader Operator (lbs) 75 Left Motor Grader Operator (lbs) 120 PT-OP-Q Treatments Start: 05/29/22 15:37 Freq: Status: Active Protocol: Document 06/12/22 09:45 DCW (Rec: 06/12/22 10:23 DCW [id number]) Therapeutic Exercises Sitting Exercises Upper Trap Sitting Exercise Name Upper Trap stretch Side right Manual Therapy Treatment Soft Tissue Mobilization Cervical paraspinals Body Location Upper trap, scalenes, levator, SCM Mobilization Type Sustained Pressure,Trigger Point Release Intensity/Depth Moderate Manual Traction Cervical Details Cervical traction Body Position Supine PT-OP-R Modalities Start: 05/29/22 15:37 Freq: Status: Active Protocol: Document 06/12/22 09:45 DCW (Rec: 06/12/22 10:28 DCW [id number]) Spinal Traction Traction Treatment Cervical Method Mechanical Patient Position Supine Force Applied (Pounds) 25 Duration of Treatment (Minutes) 10 PT-OP-T Assessment and Plan Start: 05/29/22 15:37 Freq: Status: Active Protocol: Document 06/12/22 09:45 DCW (Rec: 06/12/22 10:23 DCW [id number]) Physical Therapy Assessment Impairments Impairments Pain,ROM,Soft Tissue Mobility, Strength,Tone Goals Three Impairment Pt shows significant decrease in right special police strength (75 lbs vs 120 lbs L) Plumbing Assembler Installer Goal (LTG) Pt to increase right special police strength to at lease 100 lbs of force using a dynamometer LTG Duration 07/27/22 Two Impairment Pt displays significantly limited cervical ROM Usp Goal (LTG) Pt to increased cervical lateral flexion bilaterally to at least 30?, and right rotation to at least 60?, in order to improve ability when turning his head to check for traffic LTG Duration 07/27/22 One Impairment Pt does not have an appropriate home exercise program Short Term Goal (STG) Pt to be independent and compliant with an appropriate HEP STG Duration 06/29/22 Assessment Summary Assessment Pt doing well with HEP, trial of cervical traction unit today, pt noted feeling good stretching with traction, no complaints of radicular symptoms. Physical Therapy Plan Frequency and Duration Frequency of Treatment 2x/Week Plan of Care Start Date 05/29/22 Plan of Care End Date 07/27/22 Therapeutic Interventions Therapeutic Interventions Home Exercise Program,Joint Mobilizations,Manual Therapy, Neuromuscular Re-education, Patient/Caregiver Education, Self-Care/Home Management,Soft Tissue Mobilization, Therapeutic Activities, Therapeutic Exercises Modalities Cold Pack/Ice Massage,Electric Stimulation,Hot Packs, Ultrasound Next Visit Focus/Plan Next Note Type Treatment Note Next Visit Plan Cervical traction, stretching, strengthening, neural glides
--- NOTE | 2022-06-17 10:31 | PT.OTN ---
Current Diagnoses Strain of unspecified muscle, fascia and tendon at shoulder and upper arm level, right arm, initial encounter (06/17/22) Strain of unspecified muscle, fascia and tendon at shoulder and upper arm level, right arm, subsequent encounter (06/17/22) Physical Therapy Treatment Note PT-OP-A Visit Information Start: 05/29/22 15:37 Freq: Status: Active Protocol: Document 06/17/22 09:45 DCW (Rec: 06/17/22 10:18 DCW [id number]) Out-Patient Physical Therapy Visit Information Visit Information Visit Type Treatment Note Visit Start Time 09:45 Visit Stop Time 10:30 Total Visit Minutes 45 Visit Number 4 Number of DIRECTOR OF HEAD START Visits 0 Evaluation Information Evaluation Date 05/29/22 PT-OP-B Current Condition Start: 05/29/22 15:37 Freq: Status: Active Protocol: Document 05/29/22 09:45 DCW (Rec: 05/29/22 15:59 DCW [id number]) Current Condition History of Current Condition Onset Date 1.5 month history Current Complaints Tightness/pain along medial R scapula, occasional tingling R triceps History of Current Condition Pt is a 66 year old male presenting with a 1.5 month history of tightness and pain along what he describes as his rhomboids on his right side, which began around giving 1.5 months ago. No noted initial injury, appears to be idiopathic. Spoke with a friend who happens to be a retired physical therapist, who thought he may have some displaced ribs, recommended x- rays. X-rays did not appear to show anything in particular, pt has seen a chiro a few times, who worked on his neck and back some, which helped for a short time, but pain always returned. Pt also complains of occasional numbness down his right arm, mainly in his triceps, but occasionally into his forearm, and admits he self-diagnosed himself with ulnar nerve entrapment after googling his symptoms. Pt typically spends a lot of time lifting weights, and hasn't been able to for the past seven months, and he is anxious to get back to it. Treatment Goals Patient/Caregiver Goals Return to weight lifting, eliminate scapular/rhomboid pain, eliminate right arm numbness PT-OP-C Subjective Start: 05/29/22 15:37 Freq: Status: Active Protocol: Document 06/17/22 09:45 DCW (Rec: 06/17/22 10:18 DCW [id number]) OP-PT Subjective Patient Comments Patient Comments It's not perfect, but it feels good enough that I forget about it most of the time. PT-OP-E Functional Tests Start: 05/29/22 15:37 Freq: Status: Active Protocol: Document 05/29/22 09:45 DCW (Rec: 05/29/22 15:59 DCW [id number]) Functional Tests Apley's Scratch Test Action 2- Left T4 Action 2- Right C4 Action 3- Left T9 Action 3- Right T11 PT-OP-F Manual Assessment Start: 05/29/22 15:37 Freq: Status: Active Protocol: Document 05/29/22 09:45 DCW (Rec: 05/29/22 17:45 DCW [id number]) Manual Assessments Soft Tissue Assessment Soft Tissue Mobility Assessment Mild-moderate tone right parascapular musculature: rhomboids subscap, infraspinatus Moderate tone right upper trap , scalenes, levator scap PT-OP-K Range of Motion Start: 05/29/22 15:37 Freq: Status: Active Protocol: Document 05/29/22 09:45 DCW (Rec: 05/29/22 17:45 DCW [id number]) Cervical Spine Range of Motion Cervical Spine Active Degrees Testing Position Sitting Flexion 50 Extension 25 Rotation Left 60 Rotation Right 48 Lateral Flexion Left 19 Lateral Flexion Right 8 ROM Limitations Soft Tissue Tightness,Bony Restriction,Muscle Tone,Pain PT-OP-L Special Tests Start: 05/29/22 15:37 Freq: Status: Active Protocol: Document 05/29/22 09:45 DCW (Rec: 05/29/22 17:45 DCW [id number]) Special Tests Cervical Spine Special Tests Spurling's Test Test Results Positive R Foraminal Compression Test Results Positive R Neural Special Tests- Upper Body Ulnar Nerve Tension Test Results Positive R PT-OP-M Strength Start: 05/29/22 15:37 Freq: Status: Active Protocol: Document 05/29/22 09:45 DCW (Rec: 05/29/22 17:45 DCW [id number]) Hand Rig Hand/Pinch Strength Hand Dominance Hand Dominance Right Hand Strength Right Rig Hand (lbs) 75 Left Rig Hand (lbs) 120 PT-OP-Q Treatments Start: 05/29/22 15:37 Freq: Status: Active Protocol: Document 06/17/22 09:45 DCW (Rec: 06/17/22 10:18 DCW [id number]) Therapeutic Exercises Sitting Exercises Upper Trap Sitting Exercise Name Upper Trap stretch Side right Manual Therapy Treatment Soft Tissue Mobilization Cervical paraspinals Body Location Upper trap, scalenes, levator, SCM Mobilization Type Sustained Pressure,Trigger Point Release Intensity/Depth Moderate Manual Traction Cervical Details Cervical traction Body Position Supine PT-OP-R Modalities Start: 05/29/22 15:37 Freq: Status: Active Protocol: Document 06/17/22 09:45 DCW (Rec: 06/17/22 10:18 DCW [id number]) Spinal Traction Traction Treatment Cervical Method Mechanical Patient Position Supine Force Applied (Pounds) 25 Duration of Treatment (Minutes) 10 PT-OP-T Assessment and Plan Start: 05/29/22 15:37 Freq: Status: Active Protocol: Document 06/17/22 09:45 DCW (Rec: 06/17/22 10:18 DCW [id number]) Physical Therapy Assessment Impairments Impairments Pain,ROM,Soft Tissue Mobility, Strength,Tone Goals Three Impairment Pt shows significant decrease in right biometrics specialist strength (75 lbs vs 120 lbs L) Control Panel Operator Goal (LTG) Pt to increase right biometrics specialist strength to at lease 100 lbs of force using a dynamometer LTG Duration 07/27/22 Two Impairment Pt displays significantly limited cervical ROM Halfway Goal (LTG) Pt to increased cervical lateral flexion bilaterally to at least 30?, and right rotation to at least 60?, in order to improve ability when turning his head to check for traffic LTG Duration 07/27/22 One Impairment Pt does not have an appropriate home exercise program Short Term Goal (STG) Pt to be independent and compliant with an appropriate HEP STG Duration 06/29/22 Assessment Summary Assessment Pt felt significant relief with pain following trial of cervical traction unit last week. Performed again today, pt making great progress overall, significant decline in both frequency and severity of pain. Physical Therapy Plan Frequency and Duration Frequency of Treatment 2x/Week Plan of Care Start Date 05/29/22 Plan of Care End Date 07/27/22 Therapeutic Interventions Therapeutic Interventions Home Exercise Program,Joint Mobilizations,Manual Therapy, Neuromuscular Re-education, Patient/Caregiver Education, Self-Care/Home Management,Soft Tissue Mobilization, Therapeutic Activities, Therapeutic Exercises Modalities Cold Pack/Ice Massage,Electric Stimulation,Hot Packs, Ultrasound Next Visit Focus/Plan Next Note Type Treatment Note Next Visit Plan Cervical traction, stretching, strengthening, neural glides
--- NOTE | 2022-06-19 10:22 | PT.OTN ---
Current Diagnoses Strain of unspecified muscle, fascia and tendon at shoulder and upper arm level, right arm, initial encounter (06/19/22) Strain of unspecified muscle, fascia and tendon at shoulder and upper arm level, right arm, subsequent encounter (06/19/22) Physical Therapy Treatment Note PT-OP-A Visit Information Start: 05/29/22 15:37 Freq: Status: Active Protocol: Document 06/19/22 09:45 DCW (Rec: 06/19/22 10:22 DCW [id number]) Out-Patient Physical Therapy Visit Information Visit Information Visit Type Treatment Note Visit Note Pt requests to leave early today Visit Start Time 09:45 Visit Stop Time 10:15 Total Visit Minutes 30 Visit Number 5 Number of GREEN END WORKER Visits 0 Evaluation Information Evaluation Date 05/29/22 PT-OP-B Current Condition Start: 05/29/22 15:37 Freq: Status: Active Protocol: Document 05/29/22 09:45 DCW (Rec: 05/29/22 15:59 DCW [id number]) Current Condition History of Current Condition Onset Date 1.5 month history Current Complaints Tightness/pain along medial R scapula, occasional tingling R triceps History of Current Condition Pt is a 66 year old male presenting with a 1.5 month history of tightness and pain along what he describes as his rhomboids on his right side, which began around giving 1.5 months ago. No noted initial injury, appears to be idiopathic. Spoke with a friend who happens to be a retired physical therapist, who thought he may have some displaced ribs, recommended x- rays. X-rays did not appear to show anything in particular, pt has seen a chiro a few times, who worked on his neck and back some, which helped for a short time, but pain always returned. Pt also complains of occasional numbness down his right arm, mainly in his triceps, but occasionally into his forearm, and admits he self-diagnosed himself with ulnar nerve entrapment after googling his symptoms. Pt typically spends a lot of time lifting weights, and hasn't been able to for the past seven months, and he is anxious to get back to it. Treatment Goals Patient/Caregiver Goals Return to weight lifting, eliminate scapular/rhomboid pain, eliminate right arm numbness PT-OP-C Subjective Start: 05/29/22 15:37 Freq: Status: Active Protocol: Document 06/19/22 09:45 DCW (Rec: 06/19/22 10:22 DCW [id number]) OP-PT Subjective Patient Comments Patient Comments Main complaint right now is pain in arm while driving, pt notes he is unable to figure out why it makes that much of a difference. PT-OP-E Functional Tests Start: 05/29/22 15:37 Freq: Status: Active Protocol: Document 05/29/22 09:45 DCW (Rec: 05/29/22 15:59 DCW [id number]) Functional Tests Apley's Scratch Test Action 2- Left T4 Action 2- Right C4 Action 3- Left T9 Action 3- Right T11 PT-OP-F Manual Assessment Start: 05/29/22 15:37 Freq: Status: Active Protocol: Document 05/29/22 09:45 DCW (Rec: 05/29/22 17:45 DCW [id number]) Manual Assessments Soft Tissue Assessment Soft Tissue Mobility Assessment Mild-moderate tone right parascapular musculature: rhomboids subscap, infraspinatus Moderate tone right upper trap , scalenes, levator scap PT-OP-K Range of Motion Start: 05/29/22 15:37 Freq: Status: Active Protocol: Document 05/29/22 09:45 DCW (Rec: 05/29/22 17:45 DCW [id number]) Cervical Spine Range of Motion Cervical Spine Active Degrees Testing Position Sitting Flexion 50 Extension 25 Rotation Left 60 Rotation Right 48 Lateral Flexion Left 19 Lateral Flexion Right 8 ROM Limitations Soft Tissue Tightness,Bony Restriction,Muscle Tone,Pain PT-OP-L Special Tests Start: 05/29/22 15:37 Freq: Status: Active Protocol: Document 05/29/22 09:45 DCW (Rec: 05/29/22 17:45 DCW [id number]) Special Tests Cervical Spine Special Tests Spurling's Test Test Results Positive R Foraminal Compression Test Results Positive R Neural Special Tests- Upper Body Ulnar Nerve Tension Test Results Positive R PT-OP-M Strength Start: 05/29/22 15:37 Freq: Status: Active Protocol: Document 05/29/22 09:45 DCW (Rec: 05/29/22 17:45 DCW [id number]) Hand Nurse School/Pinch Strength Hand Dominance Hand Dominance Right Hand Strength Right Nurse School (lbs) 75 Left Nurse School (lbs) 120 PT-OP-Q Treatments Start: 05/29/22 15:37 Freq: Status: Active Protocol: Document 06/19/22 09:45 DCW (Rec: 06/19/22 10:22 DCW [id number]) Manual Therapy Treatment Soft Tissue Mobilization Cervical paraspinals Body Location Upper trap, scalenes, levator, SCM Mobilization Type Sustained Pressure,Trigger Point Release Intensity/Depth Moderate Manual Traction Cervical Details Cervical traction Body Position Supine PT-OP-R Modalities Start: 05/29/22 15:37 Freq: Status: Active Protocol: Document 06/17/22 09:45 DCW (Rec: 06/17/22 10:18 DCW [id number]) Spinal Traction Traction Treatment Cervical Method Mechanical Patient Position Supine Force Applied (Pounds) 25 Duration of Treatment (Minutes) 10 PT-OP-T Assessment and Plan Start: 05/29/22 15:37 Freq: Status: Active Protocol: Document 06/19/22 09:45 DCW (Rec: 06/19/22 10:22 DCW [id number]) Physical Therapy Assessment Impairments Impairments Pain,ROM,Soft Tissue Mobility, Strength,Tone Goals Three Impairment Pt shows significant decrease in right septic tank setter strength (75 lbs vs 120 lbs L) Sifting Operator Goal (LTG) Pt to increase right septic tank setter strength to at lease 100 lbs of force using a dynamometer LTG Duration 07/27/22 Two Impairment Pt displays significantly limited cervical ROM Long-Term Goal (LTG) Pt to increased cervical lateral flexion bilaterally to at least 30?, and right rotation to at least 60?, in order to improve ability when turning his head to check for traffic LTG Duration 07/27/22 One Impairment Pt does not have an appropriate home exercise program Short Term Goal (STG) Pt to be independent and compliant with an appropriate HEP STG Duration 06/29/22 Assessment Summary Assessment Discussed possible fixes for pt pain during driving, pt agrees to place a pillow on center console for more supportive arm rest. Overall pt continues to show good improvement. Physical Therapy Plan Frequency and Duration Frequency of Treatment 2x/Week Plan of Care Start Date 05/29/22 Plan of Care End Date 07/27/22 Therapeutic Interventions Therapeutic Interventions Home Exercise Program,Joint Mobilizations,Manual Therapy, Neuromuscular Re-education, Patient/Caregiver Education, Self-Care/Home Management,Soft Tissue Mobilization, Therapeutic Activities, Therapeutic Exercises Modalities Cold Pack/Ice Massage,Electric Stimulation,Hot Packs, Ultrasound Next Visit Focus/Plan Next Note Type Treatment Note Next Visit Plan Cervical traction, stretching, strengthening, neural glides
--- NOTE | 2022-06-25 15:59 | PT.OTN ---
Current Diagnoses Strain of unspecified muscle, fascia and tendon at shoulder and upper arm level, right arm, initial encounter (06/25/22) Strain of unspecified muscle, fascia and tendon at shoulder and upper arm level, right arm, subsequent encounter (06/25/22) Physical Therapy Treatment Note PT-OP-A Visit Information Start: 05/29/22 15:37 Freq: Status: Active Protocol: Document 06/25/22 15:15 DCW (Rec: 06/25/22 15:58 DCW [id number]) Out-Patient Physical Therapy Visit Information Visit Information Visit Type Treatment Note Visit Start Time 15:15 Visit Stop Time 16:00 Total Visit Minutes 45 Visit Number 6 Number of KENNEL MANAGER Visits 0 Evaluation Information Evaluation Date 05/29/22 PT-OP-B Current Condition Start: 05/29/22 15:37 Freq: Status: Active Protocol: Document 05/29/22 09:45 DCW (Rec: 05/29/22 15:59 DCW [id number]) Current Condition History of Current Condition Onset Date 1.5 month history Current Complaints Tightness/pain along medial R scapula, occasional tingling R triceps History of Current Condition Pt is a 66 year old male presenting with a 1.5 month history of tightness and pain along what he describes as his rhomboids on his right side, which began around giving 1.5 months ago. No noted initial injury, appears to be idiopathic. Spoke with a friend who happens to be a retired physical therapist, who thought he may have some displaced ribs, recommended x- rays. X-rays did not appear to show anything in particular, pt has seen a chiro a few times, who worked on his neck and back some, which helped for a short time, but pain always returned. Pt also complains of occasional numbness down his right arm, mainly in his triceps, but occasionally into his forearm, and admits he self-diagnosed himself with ulnar nerve entrapment after googling his symptoms. Pt typically spends a lot of time lifting weights, and hasn't been able to for the past seven months, and he is anxious to get back to it. Treatment Goals Patient/Caregiver Goals Return to weight lifting, eliminate scapular/rhomboid pain, eliminate right arm numbness PT-OP-C Subjective Start: 05/29/22 15:37 Freq: Status: Active Protocol: Document 06/25/22 15:15 DCW (Rec: 06/25/22 15:58 DCW [id number]) OP-PT Subjective Patient Comments Patient Comments 98% better since I started here. Was driving around in his car for about 4-5 hours total yesterday, and it was quite a bit better. PT-OP-E Functional Tests Start: 05/29/22 15:37 Freq: Status: Active Protocol: Document 05/29/22 09:45 DCW (Rec: 05/29/22 15:59 DCW [id number]) Functional Tests Apley's Scratch Test Action 2- Left T4 Action 2- Right C4 Action 3- Left T9 Action 3- Right T11 PT-OP-F Manual Assessment Start: 05/29/22 15:37 Freq: Status: Active Protocol: Document 05/29/22 09:45 DCW (Rec: 05/29/22 17:45 DCW [id number]) Manual Assessments Soft Tissue Assessment Soft Tissue Mobility Assessment Mild-moderate tone right parascapular musculature: rhomboids subscap, infraspinatus Moderate tone right upper trap , scalenes, levator scap PT-OP-K Range of Motion Start: 05/29/22 15:37 Freq: Status: Active Protocol: Document 05/29/22 09:45 DCW (Rec: 05/29/22 17:45 DCW [id number]) Cervical Spine Range of Motion Cervical Spine Active Degrees Testing Position Sitting Flexion 50 Extension 25 Rotation Left 60 Rotation Right 48 Lateral Flexion Left 19 Lateral Flexion Right 8 ROM Limitations Soft Tissue Tightness,Bony Restriction,Muscle Tone,Pain PT-OP-L Special Tests Start: 05/29/22 15:37 Freq: Status: Active Protocol: Document 05/29/22 09:45 DCW (Rec: 05/29/22 17:45 DCW [id number]) Special Tests Cervical Spine Special Tests Spurling's Test Test Results Positive R Foraminal Compression Test Results Positive R Neural Special Tests- Upper Body Ulnar Nerve Tension Test Results Positive R PT-OP-M Strength Start: 05/29/22 15:37 Freq: Status: Active Protocol: Document 05/29/22 09:45 DCW (Rec: 05/29/22 17:45 DCW [id number]) Hand Legal Administrator/Pinch Strength Hand Dominance Hand Dominance Right Hand Strength Right Legal Administrator (lbs) 75 Left Legal Administrator (lbs) 120 PT-OP-Q Treatments Start: 05/29/22 15:37 Freq: Status: Active Protocol: Document 06/25/22 15:15 DCW (Rec: 06/25/22 15:58 DCW [id number]) Manual Therapy Treatment Soft Tissue Mobilization Cervical paraspinals Body Location Upper trap, scalenes, levator, SCM Mobilization Type Sustained Pressure,Trigger Point Release Intensity/Depth Moderate Manual Traction Cervical Details Cervical traction Body Position Supine PT-OP-R Modalities Start: 05/29/22 15:37 Freq: Status: Active Protocol: Document 06/25/22 15:15 DCW (Rec: 06/25/22 15:58 DCW [id number]) Spinal Traction Traction Treatment Cervical Method Mechanical Patient Position Supine Force Applied (Pounds) 25 Duration of Treatment (Minutes) 10 PT-OP-T Assessment and Plan Start: 05/29/22 15:37 Freq: Status: Active Protocol: Document 06/25/22 15:15 DCW (Rec: 06/25/22 15:58 DCW [id number]) Physical Therapy Assessment Impairments Impairments Pain,ROM,Soft Tissue Mobility, Strength,Tone Goals Three Impairment Pt shows significant decrease in right wafer fabricator strength (75 lbs vs 120 lbs L) Custodial Goal (LTG) Pt to increase right wafer fabricator strength to at lease 100 lbs of force using a dynamometer LTG Duration 07/27/22 Two Impairment Pt displays significantly limited cervical ROM Car Starter Goal (LTG) Pt to increased cervical lateral flexion bilaterally to at least 30?, and right rotation to at least 60?, in order to improve ability when turning his head to check for traffic LTG Duration 07/27/22 One Impairment Pt does not have an appropriate home exercise program Short Term Goal (STG) Pt to be independent and compliant with an appropriate HEP STG Duration 06/29/22 Assessment Summary Assessment Pt tolerating driving longer distances with less pain, overall very happy with how much he has progress. Physical Therapy Plan Frequency and Duration Frequency of Treatment 2x/Week Plan of Care Start Date 05/29/22 Plan of Care End Date 07/27/22 Therapeutic Interventions Therapeutic Interventions Home Exercise Program,Joint Mobilizations,Manual Therapy, Neuromuscular Re-education, Patient/Caregiver Education, Self-Care/Home Management,Soft Tissue Mobilization, Therapeutic Activities, Therapeutic Exercises Modalities Cold Pack/Ice Massage,Electric Stimulation,Hot Packs, Ultrasound Next Visit Focus/Plan Next Note Type Treatment Note Next Visit Plan Cervical traction, stretching, strengthening, neural glides
--- NOTE | 2022-06-27 14:27 | PT.OTN ---
Current Diagnoses Strain of unspecified muscle, fascia and tendon at shoulder and upper arm level, right arm, initial encounter (06/27/22) Strain of unspecified muscle, fascia and tendon at shoulder and upper arm level, right arm, subsequent encounter (06/27/22) Physical Therapy Treatment Note PT-OP-A Visit Information Start: 05/29/22 15:37 Freq: Status: Active Protocol: Document 06/27/22 13:45 DCW (Rec: 06/27/22 14:27 DCW [id number]) Out-Patient Physical Therapy Visit Information Visit Information Visit Type Treatment Note Visit Start Time 13:45 Visit Stop Time 14:30 Total Visit Minutes 45 Visit Number 7 Number of CLINICAL DOCUMENTATION CONSULTANT Visits 0 Evaluation Information Evaluation Date 05/29/22 PT-OP-B Current Condition Start: 05/29/22 15:37 Freq: Status: Active Protocol: Document 05/29/22 09:45 DCW (Rec: 05/29/22 15:59 DCW [id number]) Current Condition History of Current Condition Onset Date 1.5 month history Current Complaints Tightness/pain along medial R scapula, occasional tingling R triceps History of Current Condition Pt is a 66 year old male presenting with a 1.5 month history of tightness and pain along what he describes as his rhomboids on his right side, which began around giving 1.5 months ago. No noted initial injury, appears to be idiopathic. Spoke with a friend who happens to be a retired physical therapist, who thought he may have some displaced ribs, recommended x- rays. X-rays did not appear to show anything in particular, pt has seen a chiro a few times, who worked on his neck and back some, which helped for a short time, but pain always returned. Pt also complains of occasional numbness down his right arm, mainly in his triceps, but occasionally into his forearm, and admits he self-diagnosed himself with ulnar nerve entrapment after googling his symptoms. Pt typically spends a lot of time lifting weights, and hasn't been able to for the past seven months, and he is anxious to get back to it. Treatment Goals Patient/Caregiver Goals Return to weight lifting, eliminate scapular/rhomboid pain, eliminate right arm numbness PT-OP-C Subjective Start: 05/29/22 15:37 Freq: Status: Active Protocol: Document 06/27/22 13:45 DCW (Rec: 06/27/22 14:27 DCW [id number]) OP-PT Subjective Patient Comments Patient Comments Pt feeling good overall, still there a bit, tends to come and go. PT-OP-E Functional Tests Start: 05/29/22 15:37 Freq: Status: Active Protocol: Document 05/29/22 09:45 DCW (Rec: 05/29/22 15:59 DCW [id number]) Functional Tests Apley's Scratch Test Action 2- Left T4 Action 2- Right C4 Action 3- Left T9 Action 3- Right T11 PT-OP-F Manual Assessment Start: 05/29/22 15:37 Freq: Status: Active Protocol: Document 05/29/22 09:45 DCW (Rec: 05/29/22 17:45 DCW [id number]) Manual Assessments Soft Tissue Assessment Soft Tissue Mobility Assessment Mild-moderate tone right parascapular musculature: rhomboids subscap, infraspinatus Moderate tone right upper trap , scalenes, levator scap PT-OP-K Range of Motion Start: 05/29/22 15:37 Freq: Status: Active Protocol: Document 05/29/22 09:45 DCW (Rec: 05/29/22 17:45 DCW [id number]) Cervical Spine Range of Motion Cervical Spine Active Degrees Testing Position Sitting Flexion 50 Extension 25 Rotation Left 60 Rotation Right 48 Lateral Flexion Left 19 Lateral Flexion Right 8 ROM Limitations Soft Tissue Tightness,Bony Restriction,Muscle Tone,Pain PT-OP-L Special Tests Start: 05/29/22 15:37 Freq: Status: Active Protocol: Document 05/29/22 09:45 DCW (Rec: 05/29/22 17:45 DCW [id number]) Special Tests Cervical Spine Special Tests Spurling's Test Test Results Positive R Foraminal Compression Test Results Positive R Neural Special Tests- Upper Body Ulnar Nerve Tension Test Results Positive R PT-OP-M Strength Start: 05/29/22 15:37 Freq: Status: Active Protocol: Document 05/29/22 09:45 DCW (Rec: 05/29/22 17:45 DCW [id number]) Hand Turf Manager/Pinch Strength Hand Dominance Hand Dominance Right Hand Strength Right Turf Manager (lbs) 75 Left Turf Manager (lbs) 120 PT-OP-Q Treatments Start: 05/29/22 15:37 Freq: Status: Active Protocol: Document 06/27/22 13:45 DCW (Rec: 06/27/22 14:27 DCW [id number]) Manual Therapy Treatment Soft Tissue Mobilization Cervical paraspinals Body Location Upper trap, scalenes, levator, SCM Mobilization Type Sustained Pressure,Trigger Point Release Intensity/Depth Moderate Manual Traction Cervical Details Cervical traction Body Position Supine PT-OP-R Modalities Start: 05/29/22 15:37 Freq: Status: Active Protocol: Document 06/25/22 15:15 DCW (Rec: 06/25/22 15:58 DCW [id number]) Spinal Traction Traction Treatment Cervical Method Mechanical Patient Position Supine Force Applied (Pounds) 25 Duration of Treatment (Minutes) 10 PT-OP-T Assessment and Plan Start: 05/29/22 15:37 Freq: Status: Active Protocol: Document 06/27/22 13:45 DCW (Rec: 06/27/22 14:27 DCW [id number]) Physical Therapy Assessment Impairments Impairments Pain,ROM,Soft Tissue Mobility, Strength,Tone Goals Three Impairment Pt shows significant decrease in right investigator operator strength (75 lbs vs 120 lbs L) Relay Man Goal (LTG) Pt to increase right investigator operator strength to at lease 100 lbs of force using a dynamometer LTG Duration 07/27/22 Two Impairment Pt displays significantly limited cervical ROM Relay Man Goal (LTG) Pt to increased cervical lateral flexion bilaterally to at least 30?, and right rotation to at least 60?, in order to improve ability when turning his head to check for traffic LTG Duration 07/27/22 One Impairment Pt does not have an appropriate home exercise program Short Term Goal (STG) Pt to be independent and compliant with an appropriate HEP STG Duration 06/29/22 Assessment Summary Assessment Pt doing very well, largely not having symptoms with most activities. Does note some right shoulder pain when trying to sleep on his right side, but overall doing very well. Will likely discharge following next week's visit. Physical Therapy Plan Frequency and Duration Frequency of Treatment 2x/Week Plan of Care Start Date 05/29/22 Plan of Care End Date 07/27/22 Therapeutic Interventions Therapeutic Interventions Home Exercise Program,Joint Mobilizations,Manual Therapy, Neuromuscular Re-education, Patient/Caregiver Education, Self-Care/Home Management,Soft Tissue Mobilization, Therapeutic Activities, Therapeutic Exercises Modalities Cold Pack/Ice Massage,Electric Stimulation,Hot Packs, Ultrasound Next Visit Focus/Plan Next Note Type Treatment Note Next Visit Plan Cervical traction, stretching, strengthening, neural glides
--- NOTE | 2022-07-02 17:21 | PT.OTN ---
Current Diagnoses Strain of unspecified muscle, fascia and tendon at shoulder and upper arm level, right arm, initial encounter (07/02/22) Strain of unspecified muscle, fascia and tendon at shoulder and upper arm level, right arm, subsequent encounter (07/02/22) Physical Therapy Treatment Note PT-OP-A Visit Information Start: 05/29/22 15:37 Freq: Status: Active Protocol: Document 07/02/22 16:45 DCW (Rec: 07/02/22 17:20 DCW [id number]) Out-Patient Physical Therapy Visit Information Visit Information Visit Type Discharge Summary Visit Start Time 16:45 Visit Stop Time 17:15 Total Visit Minutes 30 Visit Number 8 Number of CHIEF DISPATCHER Visits 0 Evaluation Information Evaluation Date 05/29/22 PT-OP-B Current Condition Start: 05/29/22 15:37 Freq: Status: Active Protocol: Document 05/29/22 09:45 DCW (Rec: 05/29/22 15:59 DCW [id number]) Current Condition History of Current Condition Onset Date 1.5 month history Current Complaints Tightness/pain along medial R scapula, occasional tingling R triceps History of Current Condition Pt is a 66 year old male presenting with a 1.5 month history of tightness and pain along what he describes as his rhomboids on his right side, which began around giving 1.5 months ago. No noted initial injury, appears to be idiopathic. Spoke with a friend who happens to be a retired physical therapist, who thought he may have some displaced ribs, recommended x- rays. X-rays did not appear to show anything in particular, pt has seen a chiro a few times, who worked on his neck and back some, which helped for a short time, but pain always returned. Pt also complains of occasional numbness down his right arm, mainly in his triceps, but occasionally into his forearm, and admits he self-diagnosed himself with ulnar nerve entrapment after googling his symptoms. Pt typically spends a lot of time lifting weights, and hasn't been able to for the past seven months, and he is anxious to get back to it. Treatment Goals Patient/Caregiver Goals Return to weight lifting, eliminate scapular/rhomboid pain, eliminate right arm numbness PT-OP-C Subjective Start: 05/29/22 15:37 Freq: Status: Active Protocol: Document 07/02/22 16:45 DCW (Rec: 07/02/22 17:20 DCW [id number]) OP-PT Subjective Patient Comments Patient Comments Admits his low back has been bothering him the past few days, but otherwise feels much better. PT-OP-E Functional Tests Start: 05/29/22 15:37 Freq: Status: Active Protocol: Document 05/29/22 09:45 DCW (Rec: 05/29/22 15:59 DCW [id number]) Functional Tests Apley's Scratch Test Action 2- Left T4 Action 2- Right C4 Action 3- Left T9 Action 3- Right T11 PT-OP-F Manual Assessment Start: 05/29/22 15:37 Freq: Status: Active Protocol: Document 05/29/22 09:45 DCW (Rec: 05/29/22 17:45 DCW [id number]) Manual Assessments Soft Tissue Assessment Soft Tissue Mobility Assessment Mild-moderate tone right parascapular musculature: rhomboids subscap, infraspinatus Moderate tone right upper trap , scalenes, levator scap PT-OP-K Range of Motion Start: 05/29/22 15:37 Freq: Status: Active Protocol: Document 07/02/22 16:45 DCW (Rec: 07/02/22 17:21 DCW [id number]) Cervical Spine Range of Motion Cervical Spine Active Degrees Testing Position Sitting Flexion 55 Extension 35 Rotation Left 60 Rotation Right 55 Lateral Flexion Left 30 Lateral Flexion Right 20 ROM Limitations Bony Restriction,Muscle Tone PT-OP-L Special Tests Start: 05/29/22 15:37 Freq: Status: Active Protocol: Document 05/29/22 09:45 DCW (Rec: 05/29/22 17:45 DCW [id number]) Special Tests Cervical Spine Special Tests Spurling's Test Test Results Positive R Foraminal Compression Test Results Positive R Neural Special Tests- Upper Body Ulnar Nerve Tension Test Results Positive R PT-OP-M Strength Start: 05/29/22 15:37 Freq: Status: Active Protocol: Document 05/29/22 09:45 DCW (Rec: 05/29/22 17:45 DCW [id number]) Hand Manufacturing Technologist/Pinch Strength Hand Dominance Hand Dominance Right Hand Strength Right Manufacturing Technologist (lbs) 75 Left Manufacturing Technologist (lbs) 120 PT-OP-Q Treatments Start: 05/29/22 15:37 Freq: Status: Active Protocol: Document 07/02/22 16:45 DCW (Rec: 07/02/22 17:20 DCW [id number]) Manual Therapy Treatment Soft Tissue Mobilization Cervical paraspinals Body Location Upper trap, scalenes, levator, SCM Mobilization Type Sustained Pressure,Trigger Point Release Intensity/Depth Moderate Manual Traction Cervical Details Cervical traction Body Position Supine PT-OP-R Modalities Start: 05/29/22 15:37 Freq: Status: Active Protocol: Document 06/25/22 15:15 DCW (Rec: 06/25/22 15:58 DCW [id number]) Spinal Traction Traction Treatment Cervical Method Mechanical Patient Position Supine Force Applied (Pounds) 25 Duration of Treatment (Minutes) 10 PT-OP-T Assessment and Plan Start: 05/29/22 15:37 Freq: Status: Active Protocol: Document 07/02/22 16:45 DCW (Rec: 07/02/22 17:20 DCW [id number]) Physical Therapy Assessment Impairments Impairments Pain,ROM,Soft Tissue Mobility, Strength,Tone Goals Three Impairment Pt shows significant decrease in right terrazzo worker apprentice strength (75 lbs vs 120 lbs L) Senior Living Goal (LTG) Pt to increase right terrazzo worker apprentice strength to at lease 100 lbs of force using a dynamometer LTG Duration 07/27/22 Two Impairment Pt displays significantly limited cervical ROM Contour Band Saw Operator Vertical Goal (LTG) Pt to increased cervical lateral flexion bilaterally to at least 30?, and right rotation to at least 60?, in order to improve ability when turning his head to check for traffic LTG Duration Improving One Impairment Pt does not have an appropriate home exercise program Short Term Goal (STG) Pt to be independent and compliant with an appropriate HEP STG Duration Met Progress Towards Goals Progress Towards Goals Progressing Toward Goals Assessment Summary Assessment Pt very happy with current functional mobility, ROM, and pain levels. Pt feels like he is doing well with HEP, has no questions or concerns, and feels appropriate for discharge. Pt will be discharged from skilled therapy at this time. Physical Therapy Plan Frequency and Duration Frequency of Treatment 2x/Week Plan of Care Start Date 05/29/22 Plan of Care End Date 07/27/22 Therapeutic Interventions Therapeutic Interventions Home Exercise Program,Joint Mobilizations,Manual Therapy, Neuromuscular Re-education, Patient/Caregiver Education, Self-Care/Home Management,Soft Tissue Mobilization, Therapeutic Activities, Therapeutic Exercises Modalities Cold Pack/Ice Massage,Electric Stimulation,Hot Packs, Ultrasound Discharge Physical Therapy Discharge Reasons No Longer Attending PT Next Visit Focus/Plan Next Note Type Discharge Summary
== END 2022-10-28 12:06 | disposition home or self-care (01) ==
LOC: PHYS 16:45
PROVIDERS: Family Provider Family Medicine; PCP Family Medicine; Referring Provider Family Medicine; Visit Provider Family Medicine
DX: S46.911D Strain of unspecified muscle, fascia and tendon at shoulder and upper arm level, right arm, subsequent encounter (principal)
CPT/HCPCS: 97012; 97110; 97140; 97162

== ENCOUNTER → 2022-07-17 06:29 | Outpatient (CLI) | payer OTHER, SELFPAY ==
--- NOTE | 2022-07-17 06:30 | DI.US.S_ITS ---
PROCEDURE: US ABDOMEN LIMITED INDICATIONS: ELEVATED BILIRUBIN, ASYMPTOMATIC TECHNIQUE: Real-time scanning was performed of the abdominal and retroperitoneal organs, with image documentation. COMPARISON: None. FINDINGS: Liver: The liver is diffusely echogenic and measures 18.4 cm in length. Gallbladder: The gallbladder wall measures 3.1 mm in diameter. No stones, sludge, pericholecystic fluid, or sonographic Nelson sign. Biliary ducts: Intrahepatic bile ducts are non-dilated. Extrahepatic bile duct caliber measures 3.9 mm. Normal is 6-7 mm or less in diameter, or 10 mm or less post-cholecystectomy. Pancreas: Not visualized due to overlying bowel gas. IMPRESSION: 1. Increased hepatic echogenicity noted likely related to fatty infiltration of the liver but other sources of hepatocellular disease cannot be excluded. 2. No cholelithiasis or findings to suggest choledocholithiasis or acute cholecystitis. Dictated by: Carmel Almaraz M.D. on 07/17/2022 at 10:33 Approved by: Carmel Almaraz M.D. on 07/17/2022 at 10:35
== END ==
PROVIDERS: Family Provider Family Medicine; PCP Family Medicine; Referring Provider Family Medicine; Visit Provider Family Medicine
DX: R17 Unspecified jaundice (principal)
CPT/HCPCS: 76705

== ENCOUNTER → 2022-07-22 13:22 | Outpatient (CLI) | payer OTHER, SELFPAY ==
[2022-07-22 13:57] LABS: Alanine Aminotransferase 31 IU/L (<50); Albumin 4.4 g/dL (3.5-5.0); Albumin Globulin Ratio 1.8 (1.0-2.8); Alkaline Phosphatase 60 U/L (38-126); Aspartate Aminotransferase 32 IU/L (17-59); BUN Creatinine Ratio 15.5 (6-22); Bilirubin Total 1.8 mg/dL (0.2-1.3); Blood Urea Nitrogen 18 mg/dL (9-20); Calcium 9.4 mg/dL (8.4-10.2); Carbon Dioxide 28 mmol/L (22-32); Chloride 99 mmol/L (98-107); Estimated Glomerular Filt Rate > 60 mL/min (>60); Globulin 2.5 g/dL (1.7-4.1); Glucose 89 mg/dL (80-110); HEMOLYSIS < 15 (0-50); Sodium 139 mmol/L (137-145); Total Protein 6.9 g/dL (6.3-8.2)
== END ==
PROVIDERS: Family Provider Family Medicine; PCP Family Medicine; Referring Provider Family Medicine; Visit Provider Family Medicine
DX: R17 Unspecified jaundice (principal)
CPT/HCPCS: 36415; 80053

== ENCOUNTER → 2023-06-19 08:55 | Outpatient (CLI) | payer MEDICARE, OTHER, SELFPAY ==
[2023-06-19 10:29] LABS: Alanine Aminotransferase 27 IU/L (<50); Albumin 4.4 g/dL (3.5-5.0); Albumin Globulin Ratio 1.4 (1.0-2.8); Alkaline Phosphatase 56 U/L (38-126); Aspartate Aminotransferase 30 IU/L (17-59); BUN Creatinine Ratio 13.4 (6-22); Bilirubin Total 1.9 mg/dL (0.2-1.3); Blood Urea Nitrogen 17 mg/dL (9-20); Calcium 9.6 mg/dL (8.4-10.2); Carbon Dioxide 29 mmol/L (22-32); Chloride 104 mmol/L (98-107); Cholesterol 172 mg/dL (140-199); Estimated Glomerular Filt Rate > 60 mL/min (>60); Globulin 3.1 g/dL (1.7-4.1); Glucose 97 mg/dL (80-110); HDL Cholesterol 46 mg/dL (40-60); HEMOLYSIS < 15 (0-50); LDL Cholesterol Calculated 114 mg/dL (<100); Potassium 4.5 mmol/L (3.4-5.1); Sodium 139 mmol/L (137-145); Total Protein 7.5 g/dL (6.3-8.2); Triglycerides 62 mg/dL (35-150)
[2023-06-19 10:41] LABS: Free T4, Direct Thyroxine 1.29 ng/dL (0.78-2.19)
[2023-06-19 10:55] LABS: Thyroid Stimulating Hormone 2.12 uIU/mL (0.47-4.68)
[2023-06-19 10:56] LABS: Prostate Specific Antigen Scrn 0.911 ng/mL (0.1-4.0)
== END ==
PROVIDERS: Family Provider Family Medicine; PCP Family Medicine; Referring Provider Family Medicine; Visit Provider Family Medicine
DX: Z00.00 Encounter for general adult medical examination without abnormal findings (principal); E03.9 Hypothyroidism, unspecified; Z12.5 Encounter for screening for malignant neoplasm of prostate
CPT/HCPCS: 36415; 80053; 80061; 84439; 84443; G0103

== ENCOUNTER → 2024-01-05 14:38 | Outpatient (CLI) | payer MEDICARE, OTHER, SELFPAY ==
[2024-01-05 15:36] LABS: Free T4, Direct Thyroxine 0.96 ng/dL (0.78-2.19)
[2024-01-05 15:50] LABS: Thyroid Stimulating Hormone 1.54 uIU/mL (0.47-4.68)
== END ==
PROVIDERS: Family Provider Family Medicine; PCP Family Medicine; Referring Provider Family Medicine; Visit Provider Family Medicine
DX: E03.9 Hypothyroidism, unspecified (principal)
CPT/HCPCS: 36415; 84439; 84443

== ENCOUNTER 2024-05-13 09:09 | Day surgery (SDC) | payer MEDICARE, OTHER, SELFPAY ==
--- NOTE | 2024-05-13 | PATH_ITS ---
[facility] Accession Number: [id number] No. of containers..01 Tissue . 01 Material submitted: . colon - TRANSVERSE COLON POLYP . 01 Diagnosis: A. TRANSVERSE COLON, POLYPECTOMY: Tubular adenoma. [facility] 05/16/2024 1633 Local . 01 Electronically signed: . Keyla Mccoy MD, Pathologist NPI- [id number] . 01 Gross description: . Received in formalin labeled with two patient identifiers and transverse colon polyp, and consists of a 0.2 cm milligan-brown polypoid soft tissue which is entirely submitted in cassette A1. ([id number]) /FERNANDO 05/15/2024 0701 Local . 01 Pathologist provided ICD-10: Z12.11 . 01 CPT . 035682 Specimen Comment: A courtesy copy of this report has been sent to [phone] Performed at: [address] [facility] [address], [place], [place] [id number] MD Rodolfo Hutchison MD Phone: [phone]
[2024-05-13 09:56] VITALS: BP 153/80; PULSE 90; RESP 16; TEMP 36.2; O2SAT 98
--- NOTE | 2024-05-13 10:26 | P.HP_ITS ---
History of Present Illness History of Present Illness Date Patient Seen: 05/13/24 Time Patient Seen: 10:26 Chief complaint: Colonoscopy Narrative: 68-year-old white male, personal history of polyps on a colonoscopy 15 years ago. No changes in health. [facility] Medical History (Updated 05/13/24 @ 10:27 by Lorenzo Pardo MD) Personal history of colonic polyps Elevated bilirubin Well adult exam Skin cancer Acute hearing loss of right ear Wears glasses Positive TB test Mumps Measles Chicken pox Decreased platelet count (~1993) Hypothyroidism Renal insufficiency Kidney stones (~2017) Surgical History Anesthesia Hx of appendectomy Family History Mother Hypertension Social History marital status: number of children: 4 household members: spouse and children lives independently: No caregiver/support person: No pets and animals: No education level: college occupational status: unemployed (Retired) current occupational exposures/hazards: No marco antonio/faith: Jainism special marco antonio needs: No leisure activities: sports and exercise seatbelt use: always helmet use: Yes water heater temp set < 120 deg: Yes working smoke detector in home: Yes fire extinguisher in home: No carbon monox detector in home: Yes firearms in home: Yes do you feel safe at home: Yes Smoking Status: Never smoker second hand exposure: Yes (childhood ) alcohol intake: current substance use type: does not use during the past year weight has: remained stable well-balanced diet: daily or most days daily servings fruits/ve-4 caffeine: Yes eating out: 1-3 times/week Type(s) of exercise: independent ambulation, bicycling and weight lifting frequency: daily duration: 60-90 minutes/day Meds Home Medications and Allergies Home Medications Medication Instructions Recorded Confirmed Type sodium,potassium,mag sulfates 17.5 See Rx Instructions PO .COMPLEX 03/29/24 Rx gram-3.13 gram-1.6 gram oral soln #354 mL (Suprep Bowel Prep Kit) levothyroxine 75 mcg tablet 75 mcg PO DAILY #90 tabs 05/02/24 05/13/24 Rx Allergies Allergy/AdvReac Type Severity Reaction Status Date / Time No Known Drug Allergies Allergy Verified 05/13/24 09:41 Review of Systems Review of Systems ROS: Yes All systems reviewed with the patient and are negative except as otherwise documented Exam Vital Signs (past 8 hours): - 05/13/24 09:56 Temperature 97.2 F L Pulse Rate 90 Respiratory Rate 16 Blood Pressure 153/80 H Pulse Oximetry 98 Oxygen Delivery Method Room Air Oxygen Delivery Method Room Air Narrative Exam Narrative: Gen: NAD, sitting comfortably in bed, appears well HEENT: Sclera are anicteric, head is normocephalic and atraumatic, trachea is midline. CV: RRR, no JVD Resp: clear to auscultation bilaterally, equal chest wall movement bilaterally Abd: soft, nontender, normoactive bowel sounds Ext: no edema, full range of motion Neuro: Cranial nerves II-XII grossly intact, no focal deficits Skin: No erythema or ecchymosis Assessment & Plan Assessment and plan (1) Personal history of colonic polyps: Status: Acute Assessment & Plan narrative: Patient presents for initial screening colonoscopy Risks, benefits, alternatives to colonoscopy explained, including but not limited to bowel perforation or other serious complication requiring surgery at less than 1 in 5000 colonoscopies, abdominal pain, cramping or bleeding and less than 1% of colonoscopies, and the chances that we find a diagnosis that would require further intervention of about 2%. Patient agrees to proceed. Time-Based Coding :: [TOTAL MINUTES] spent with patient and on the chart (including review of chart, obtaining history, exam, reviewing outside data, placing orders, documenting exam and treatment plan, and counseling patient) on [DATE].
--- NOTE | 2024-05-13 10:45 | PM.OP.COLON ---
Operative Date/Time/Diagnoses Date of procedure: 05/13/24 Time of procedure: 10:45 Pre-op diagnosis: Personal history of polyps Post-op diagnosis: same Procedure & Clinicians Study performed: Colonoscopy with cold snare polypectomy transverse colon polyp Same procedure as scheduled: Yes Indications: Personal history of polyps Surgeon: Lorenzo Pardo Procedure Notes SCOAP/Timeout: Performed Procedure in detail: Time-out was performed. Mac was induced. Patient was placed in left lateral decubitus position. The perineum was inspected without any gross abnormality. Lubricated pediatric colonoscope was inserted and advanced to the cecum. The terminal ileum was intubated. The colonoscope was withdrawn slowly inspecting the circumference of the colon. Very small polyps may have been missed, prep quality was adequate. Retroflexed view of the rectum showed small, non prolapsed nonbleeding internal hemorrhoids. The scope was withdrawn the patient was taken to PACU in good condition. Scope withdrawal time: 6 Sedation minutes: 12 Findings: polyp(s) Impression: Benign-appearing transverse colon polyp Post-procedure Recommendations: Colonoscopy in 5 years (Next colonoscopy in 5-7 year) Plan for aftercare: Home Follow up: as needed Disposition: PACU
[2024-05-13 10:48] VITALS: BP 101/59; PULSE 72; RESP 12; TEMP 36.4; O2SAT 95
[2024-05-13 10:53] VITALS: BP 93/58; PULSE 69; RESP 11; O2SAT 92
[2024-05-13 10:58] VITALS: BP 94/66; PULSE 70; RESP 22; O2SAT 92
[2024-05-13 11:03] VITALS: BP 112/66; PULSE 63; RESP 19; O2SAT 93
[2024-05-13 11:09] VITALS: BP 104/51; PULSE 65; RESP 15; TEMP 36.9; O2SAT 97
== END 2024-05-13 11:24 | disposition home or self-care (01) ==
PROVIDERS: Surgery; Family Provider Family Medicine; PCP Family Medicine; Referring Provider Surgery; Visit Provider Surgery
PROC: 0DJD8ZZ Inspection of Lower Intestinal Tract, Via Natural or Artificial Opening Endoscopic (ICD-10-PCS; CPT 45378; principal; 2024-05-13 10:15)
DX: Z12.11 Encounter for screening for malignant neoplasm of colon (principal); Z86.0100 Personal history of colon polyps, unspecified; D12.3 Benign neoplasm of transverse colon
CPT/HCPCS: 45385; J2704

== ENCOUNTER → 2025-03-20 07:08 | Outpatient (CLI) | payer MEDICARE, OTHER, SELFPAY ==
[2025-03-20 07:45] LABS: Add Manual Diff / Slide Review NO; Hematocrit 43.8 % (41-53); Hemoglobin 14.7 g/dL (13.5-17.5); Lymphocytes Absolute Auto 1500 /uL (1100-4500); Mean Corpuscular HGB Conc 33.5 % (30-36); Mean Corpuscular Hemoglobin 29.5 PG (26-34); Mean Corpuscular Volume 88.0 fL (80-100); Platelet Count 96 X10^3/uL (150-400)
[2025-03-20 07:59] LABS: Alanine Aminotransferase 30 IU/L (<50); Albumin 4.4 g/dL (3.5-5.0); Albumin Globulin Ratio 1.7 (1.0-2.8); Alkaline Phosphatase 57 U/L (38-126); Blood Urea Nitrogen 19 mg/dL (9-20); Calcium 9.2 mg/dL (8.4-10.2); Carbon Dioxide 27 mmol/L (22-32); Chloride 103 mmol/L (98-107); Cholesterol 191 mg/dL (140-199); Estimated Glomerular Filt Rate > 60 mL/min (>60); Globulin 2.6 g/dL (1.7-4.1); Glucose 101 mg/dL (70-99); HDL Cholesterol 57 mg/dL (40-60); HEMOLYSIS < 15 (0-50); Potassium 4.1 mmol/L (3.4-5.1); Sodium 138 mmol/L (137-145); Total Protein 7.0 g/dL (6.3-8.2); Triglycerides 116 mg/dL (35-150)
[2025-03-20 08:16] LABS: Free T4, Direct Thyroxine 1.27 ng/dL (0.78-2.19)
[2025-03-20 08:30] LABS: Thyroid Stimulating Hormone 2.29 uIU/mL (0.47-4.68)
== END ==
PROVIDERS: Family Provider Family Medicine; PCP Family Medicine; Referring Provider Family Medicine; Visit Provider Family Medicine
DX: E03.9 Hypothyroidism, unspecified (principal); Z12.5 Encounter for screening for malignant neoplasm of prostate
CPT/HCPCS: 36415; 80053; 80061; 84439; 84443; 85025; G0103

== ENCOUNTER → 2025-03-23 10:24 | Outpatient (CLI) | payer MEDICARE, OTHER, SELFPAY ==
--- NOTE | 2025-03-23 10:26 | DI.RAD.S_ITS ---
PROCEDURE: XR FINGER RT MIN 2V INDICATIONS: Injury to ring finger right hand TECHNIQUE: AP hand, 2 views of the 4th finger(s) acquired. COMPARISON: None. FINDINGS: Bones: No fractures or dislocations. No suspicious bony lesions. Soft tissues: No suspicious soft tissue calcifications. IMPRESSION: No acute osseous abnormality. If pain persists with conservative management, consider repeat x-ray in 10-14 days or cross-sectional imaging. Dictated by: Sebastian Vela M.D. on 03/25/2025 at 13:55 Approved by: Sebastian Vela M.D. on 03/25/2025 at 13:55
== END ==
PROVIDERS: PCP Family Medicine; Referring Provider Family Medicine; Visit Provider Family Medicine
DX: M79.644 Pain in right finger(s) (principal)
CPT/HCPCS: 73140